=== PATIENT | female | born 1955 ===

== ENCOUNTER → 2019-10-03 | Emergency (ER) | payer SELFPAY ==
[~2019-10-03] VITALS: Ht 165.1 cm; Wt 77.2 kg
[2019-10-03 21:51] VITALS: BP 148/55
--- NOTE | 2019-10-03 21:56 | NUR ---
PREKINDERGARTEN TEACHER: EKG DONE IN TRIAGE. PT. IS STATING "I DON'T WANT TO GO ANY FURTHER WITH THE TESTING BECAUSE I AM FEELING BETTER." PT. DOES REPORT THAT SHE WILL WAIT IN THE LOBBY FOR A BIT "AND SEE IF THE PAIN COMES BACK". PT. PROVIDE WITH URINE CUP AND CLEAN CATCH INSTRUCITONS. PT. REPORTS THAT "IF I DECIDE TO LEAVE I WILL GIVE THIS BACK TO YOU, I DON'T THINK THIS IS NECESSARY." ENCOURAGED PT. TO WAIT FOR ROOM TO BECOME AVAILABLE TO HAVE FURTHER EVAL DONE. VERBALIZED UNDERSTANDING.
--- NOTE | 2019-10-03 22:05 | NUR ---
PT. BACK TO DOOR TO HAND RN URINE CUP BACK AND STATES SHE WILL LEAVE NOW AND COME BACK IF SHE GETS THE PAIN AGAIN.
--- NOTE | 2019-10-03 22:08 | NUR ---
CREATIVE SERVICES SPECIALIST: PT. BACK UP TO TRIAGE DOOR AND STATES SHE WILL NOW WAIT. REQUESTING WATER. PER GABRIELA YARBROUGH NO WATER TO BE PROVIDED AND PT. UPDATED ON THIS AND AWARE OF THIS. PT. RETURNED TO SEAT IN LOBBY.
--- NOTE | 2019-10-03 22:30 | NUR ---
called pt to room from lobby , not in lobby
--- NOTE | 2019-10-03 22:32 | NUR ---
PT. AMBULATED OUT OF LOBBY DOORS WITH FAMILY MEMBER. STEADY GAIT.
== END ==
LOC: ED 22:01
DX: R10.13 Epigastric pain (principal)
CPT/HCPCS: 93005; 99283